=== PATIENT | female | born 2005 | race Caucasian/White ===

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

== ENCOUNTER 2025-04-16 08:04 | Emergency (ER) | payer BC, SELFPAY ==
--- NOTE | 2025-04-16 08:10 | ED.SKABFB ---
HPI - Skin/Abscess/Foreign Bdy General Chief complaint: Skin/Abscess/Foreign Body Stated complaint: RASH Source: patient Mode of arrival: ambulatory Limitations: no limitations History of Present Illness HPI narrative: patient is a 19-year-old female presenting with complaint pruritic rash to her fingers, feet, left upper eyelid. Rash began approximately 3 weeks ago. 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 She denies any new skin hygiene products, gardening, camping, travel, medications, foods. She does have pets. Denies similar rash among household members. Denies personal hx of similar rash. Tx initiated BUSINESS ANALYSIS ANALYST includes application of topical hydrocortisone cream. No additional complaints. Related Data Home Medications ?Medication ?Instructions ?Recorded ?Confirmed ?Last Taken ?Type cetirizine 10 mg tablet (24Hour 10 mg PO DAILY 04/16/25 04/16/25 Unknown History Allergy) Allergies Allergy/AdvReac Type Severity Reaction Status Date / Time Penicillins Allergy Rash Verified 04/16/25 08:12 Review of Systems Review of Systems: CONSTITUTIONAL: Denies body aches, fever, chills, or sweats. EYES: Denies visual changes, redness, or discharge. ENT: Denies rhinorrhea, congestion, sore throat, or otalgia. CARDIOVASCULAR: Denies chest pain, palpitations, or edema. RESPIRATORY: Denies cough or dyspnea. GASTROINTESTINAL: Denies abdominal pain, nausea, vomiting, or diarrhea. GENITOURINARY: Denies dysuria or hematuria. MUSCULOSKELETAL: Denies back pain, joint pain, or myalgia. NEUROLOGIC: Denies headache, numbness, tingling, or weakness. PSYCH: Denies depression or anxiety. All systems reviewed & are unremarkable except as noted in HPI and below (HPI) [facility] Past Medical History Medical History No pertinent past medical history Surgical History Surgical History No pertinent past surgical history Family History Family History Mother Family history non-contributory Social History Social History (Reviewed 04/16/25 @ 08:13 by BRANDON Cheung Smoking status: Never smoker Substance use: never Gender identity (if verbalized by the patient): Female Exam Narrative: GENERAL: Well-appearing, well-nourished, and in no acute distress. HEAD: Normocephalic, atraumatic. EYES: EOMI. No redness or drainage. Conjunctivae normal. ENT: Mucous membranes pink and moist. Throat normal. Uvula midline. NECK: Normal AROM. Supple. CHEST: No respiratory distress. Clear to auscultation. HEART: Regular rate. Normal peripheral pulses. MUSCULOSKELETAL: No bony tenderness. EXTREMITIES: Normal range of motion. No edema. SKIN: Erythematous, maculopapular eruption noted to fingers, scattered amongst bilateral feet including toes and plantar aspects, L. upper eyelid with associated mild edema without erythema. The fingers are affected the greatest. There is no evidence of bacterial skin infection, no lymphatic streaking Capillary refill normal. Normal skin turgor. NEURO: No focal deficits. Alert and oriented x3. Gait steady. PSYCH: Normal affect. No signs of depression or anxiety. Course Course Level of Care: Express Care Visit Vital Signs Vital signs: Vital Signs Temperature 98.2 F 04/16/25 08:14 Pulse Rate 98 04/16/25 08:14 Respiratory Rate 16 04/16/25 08:14 Blood Pressure 127/84 04/16/25 08:14 Pulse Oximetry 100 04/16/25 08:14 Temperature 98.2 F 04/16/25 08:14 Pulse Rate 98 04/16/25 08:14 Respiratory Rate 16 04/16/25 08:14 Blood Pressure 127/84 04/16/25 08:14 Pulse Oximetry 100 04/16/25 08:14 MDM - Skin/Abscess/Foreign Bdy Medical Records Attestation: I reviewed the patient's medical records. Medical records narrative: This dictation may have been done utilizing a voice recognition system. Attempts have been made to correct errors. However, there may be uncorrected grammatical, spelling, and recognition errors present. Discharge Plan Discharge Clinical Impression: Dermatitis Patient Disposition: Home Condition: Stable Instructions: Dermatitis (ED) Additional Instructions: Go straight to ER should your symptoms become worse or should any new symptoms develop Patient Language: Khmer Prescriptions: New prednisone 20 mg tablet 20 mg PO DAILY Qty: 18 0RF Rx Instructions: Take 3 tabs x 3 days then 2 tabs x 3 days then 1 tab x 3 days No Action cetirizine [24Hour Allergy] 10 mg tablet 10 mg PO DAILY Follow-up/Referrals: PHYSICIAN,GLASS MOULD CLEANER [Primary Care Provider] - Time of Disposition: 08:29
[2025-04-16 08:14] VITALS: BP 127/84; PULSE 98; RESP 16; TEMP 36.8; O2SAT 100
== END 2025-04-16 08:35 | disposition home or self-care (01) ==
PROVIDERS: Emergency Provider Registered Nurse
DX: L30.9 Dermatitis, unspecified (principal)
CPT/HCPCS: 99213; G0463